=== PATIENT | female | born 1940 | race Caucasian/White ===

== ENCOUNTER 2016-09-13 10:46 | Inpatient (IN) | payer OTHER ==
[~2016-09-13] VITALS: Ht 167.6 cm; Wt 68.0 kg
[2016-09-13 10:46] VITALS: BP_SYST 188
[2016-09-13 11:34] LABS: BASOPHILS % (AUTO) 0.5 % (0.0-2.0); EOSINOPHILS # (AUTO) 0.1 K/uL (0.0-0.4); EOSINOPHILS % (AUTO) 1.1 % (0.0-4.0); HEMATOCRIT 41.5 % (36-48); LYMPHOCYTES # (AUTO) 1.3 K/uL (1.0-5.5); LYMPHOCYTES % (AUTO) 16.4 % (20.5-51.5); MEAN CORPUSCULAR HEMOGLOBIN 31 pg (27-31); MEAN CORPUSCULAR HGB CONC 34 % (32-36); MEAN CORPUSCULAR VOLUME 92 fL (79.0-98.0); MONOCYTES # (AUTO) 0.7 K/uL (0.0-1.0); MONOCYTES % (AUTO) 9.3 % (1.7-9.3); NEUTROPHILS # (AUTO) 5.8 K/uL (1.8-7.7); NEUTROPHILS % (AUTO) 72.7 % (40.0-70.0); PLATELET COUNT (AUTO) 234 K/uL (130-430); RED BLOOD CELL COUNT(AUTO) 4.51 MIL/uL (4.2-6.2); RED CELL DISTRIBUTION WIDTH 12.2 % (9.0-15.0); WHITE BLOOD COUNT (AUTO) 7.9 K/uL (4.8-10.8)
[2016-09-13 11:43] LABS: ANION GAP 3 (5-15); CHLORIDE 102 mmol/L (98-107); CREATININE 0.72 mg/dL (0.55-1.30); GLUCOSE 98 mg/dL (70-99); POTASSIUM 4.4 mmol/L (3.5-5.1); SODIUM SERUM 135 mmol/L (136-145); UREA NITROGEN, BLOOD 13 mg/dL (8-21)
[2016-09-13 11:47] LABS: INR 1.1 (0.8-1.2); PROTHROMBIN TIME 12.1 SECS (9.5-12.5)
[2016-09-13 11:48] LABS: ALANINE AMINOTRANSFERASE 19 U/L (12-78); ASPARTATE AMINOTRANSFERASE 19 U/L (10-37); TOTAL BILIRUBIN 0.7 mg/dL (0.0-1.0); TOTAL PROTEIN, SERUM 7.7 g/dL (6.4-8.3)
[2016-09-13 12:18] LABS: BILIRUBIN,URINE NEGATIVE (NEGATIVE); BLOOD, URINE 1+ (NEGATIVE); CLARITY/URINE CLEAR (CLEAR); COLOR,URINE YELLOW (YELLOW); GLUCOSE,URINE NEGATIVE (NEGATIVE); KETONES,URINE NEGATIVE (NEGATIVE); LEUKOCYTE ESTERASE ,URINE TRACE (NEGATIVE); NITRITE, URINE NEGATIVE (NEGATIVE); PH,URINE 5.5 (5.0-8.0); PROTEIN URINE NEGATIVE (NEGATIVE); UROBILINOGEN,URINE 0.2 (0.2-1.0)
[2016-09-13 12:29] LABS: BACTERIA,URINE FEW /HPF (None Seen)
[2016-09-13 12:30] LABS: MUCUS,URINE None Seen /LPF (None Seen)
[2016-09-13] MEDS ORDERED: ASPIRIN 325 MG TABLET (ECOTRIN) PO ONE (15:00)
[2016-09-13] MEDS ORDERED: ASPIRIN 325 MG TABLET ONE (15:20)
[2016-09-13 15:36] VITALS: BP_SYST 159
[2016-09-13] MEDS ORDERED: ASCO500T20 PO (16:02)
[2016-09-13] MEDS ORDERED: VITD2000 PO (16:02)
[2016-09-13] MEDS ORDERED: GLUC-194 PO (16:02)
[2016-09-13 19:30] VITALS: BP_SYST 141
[2016-09-14 00:49] VITALS: BP_SYST 180
[2016-09-14 04:00] VITALS: BP_SYST 168
[2016-09-14 06:48] LABS: BASOPHILS % (AUTO) 0.3 % (0.0-2.0); EOSINOPHILS % (AUTO) 0.5 % (0.0-4.0); HEMATOCRIT 40.8 % (36-48); HEMOGLOBIN 13.7 g/dL (12.0-16.0); LYMPHOCYTES # (AUTO) 0.8 K/uL (1.0-5.5); LYMPHOCYTES % (AUTO) 10.7 % (20.5-51.5); MEAN CORPUSCULAR HEMOGLOBIN 31 pg (27-31); MEAN CORPUSCULAR HGB CONC 34 % (32-36); MEAN CORPUSCULAR VOLUME 92 fL (79.0-98.0); MONOCYTES # (AUTO) 0.5 K/uL (0.0-1.0); MONOCYTES % (AUTO) 6.3 % (1.7-9.3); NEUTROPHILS % (AUTO) 82.2 % (40.0-70.0); PLATELET COUNT (AUTO) 218 K/uL (130-430); RED BLOOD CELL COUNT(AUTO) 4.44 MIL/uL (4.2-6.2); WHITE BLOOD COUNT (AUTO) 7.3 K/uL (4.8-10.8)
[2016-09-14 06:55] LABS: ALANINE AMINOTRANSFERASE 16 U/L (12-78); ALBUMIN 3.7 g/dL (3.4-4.8); ANION GAP 3 (5-15); ASPARTATE AMINOTRANSFERASE 18 U/L (10-37); CHLORIDE 101 mmol/L (98-107); CREATININE 0.72 mg/dL (0.55-1.30); GLUCOSE 99 mg/dL (70-99); POTASSIUM 4.4 mmol/L (3.5-5.1); SODIUM SERUM 136 mmol/L (136-145); TOTAL BILIRUBIN 0.8 mg/dL (0.0-1.0); TOTAL PROTEIN, SERUM 7.4 g/dL (6.4-8.3); UREA NITROGEN, BLOOD 11 mg/dL (8-21)
[2016-09-14] MEDS: CHOLECALCIFEROL (VITAMIN D3) 2,000 UNIT TABLET PO SCH (08:00)
[2016-09-14] MEDS: RIVAROXABAN 10 MG TABLET PO SCH (08:01)
[2016-09-14] MEDS: DILTIAZEM HCL 180 MG CAP.SR.24H PO SCH (08:01)
[2016-09-14] MEDS: ASPIRIN 325 MG TABLET (ECOTRIN) PO SCH (08:01)
[2016-09-14] MEDS: ASCORBIC ACID 500 MG TABLET PO SCH (08:01)
[2016-09-14 08:22] VITALS: BP_SYST 139
[2016-09-14] MEDS ORDERED: MSM PO SCH (09:00)
[2016-09-14] MEDS ORDERED: CHONDROITIN A PO SCH (09:00)
[2016-09-14] MEDS ORDERED: GLUCOSAMINE PO SCH (09:00)
[2016-09-14 11:47] VITALS: BP_SYST 138
[2016-09-14 16:38] VITALS: BP_SYST 138
[2016-09-14] MEDS ORDERED: MAG-AL HYDROX/SIMETH 30 ML UDC PO PRN (20:15)
[2016-09-14 20:20] VITALS: BP_SYST 134
[2016-09-15] VITALS: BP_SYST 145
[2016-09-15 03:24] VITALS: BP_SYST 129
[2016-09-15 07:56] VITALS: BP_SYST 145
[2016-09-15] MEDS ORDERED: LORazepam 2 MG/ML VIAL IM ONE (09:00)
[2016-09-15] MEDS ORDERED: LORazepam 2 MG/ML VIAL IVP ONE (09:00)
[2016-09-15] MEDS: ASCORBIC ACID 500 MG TABLET PO SCH (09:12)
[2016-09-15] MEDS: CHOLECALCIFEROL (VITAMIN D3) 2,000 UNIT TABLET PO SCH (09:13)
[2016-09-15] MEDS: RIVAROXABAN 10 MG TABLET PO SCH (09:13)
[2016-09-15] MEDS: ASPIRIN 325 MG TABLET (ECOTRIN) PO SCH (09:13)
[2016-09-15] MEDS: DILTIAZEM HCL 180 MG CAP.SR.24H PO SCH (09:14)
[2016-09-15 12:00] VITALS: BP_SYST 153
[2016-09-15 12:30] VITALS: BP_SYST 130
[2016-09-15] MEDS ORDERED: ASCO500T20 BC (13:56)
[2016-09-15 14:12] VITALS: BP_SYST 130
== END 2016-09-15 14:35 | disposition home or self-care (01) | DRG 69 ==
LOC: SED 10:46 → STU 14:41
PROVIDERS: ADMIT Internal Medicine; ATTEND Internal Medicine Hospice and Palliative Medicine
DX: G45.9 Transient cerebral ischemic attack, unspecified (principal); I48.0 Paroxysmal atrial fibrillation; Z96.651 Presence of right artificial knee joint; I10 Essential (primary) hypertension; Z88.5 Allergy status to narcotic agent; Z86.73 Personal history of transient ischemic attack (TIA), and cerebral infarction without residual deficits
CPT/HCPCS: 36415; 70450-TC; 70551; 71010; 80053; 81000-TC; 84484; 85025; 85610-TC; 85730-TC; 87086; 93005; 99285; A4409; J2060

== ENCOUNTER 2018-07-12 16:40 | Emergency (ER) | payer OTHER ==
[~2018-07-12] VITALS: Ht 167.6 cm; Wt 72.6 kg
[~2018-07-12 16:40] MED LIST: ASCO500T20 BC
[2018-07-12 16:54] VITALS: BP_SYST 178
[2018-07-12] MEDS ORDERED: ASPIRIN 81 MG TAB.CHEW PO ONE (17:00)
[2018-07-12 17:33] LABS: ANION GAP 6 (5-15); CALCIUM 9.5 mg/dL (8.4-11.0); CHLORIDE 95 mmol/L (98-107); CREATININE 0.81 mg/dL (0.55-1.30); GLUCOSE 118 mg/dL (70-99); POTASSIUM 3.8 mmol/L (3.5-5.1); SODIUM SERUM 129 mmol/L (136-145); UREA NITROGEN, BLOOD 14 mg/dL (8-21)
[2018-07-12 17:37] LABS: PROTHROMBIN TIME 10.4 SECS (9.5-12.5)
[2018-07-12 17:38] LABS: ALANINE AMINOTRANSFERASE 18 U/L (12-78); ALBUMIN 3.9 g/dL (3.4-4.8); ASPARTATE AMINOTRANSFERASE 16 U/L (10-37); TOTAL BILIRUBIN 0.5 mg/dL (0.0-1.0)
[2018-07-12 17:42] LABS: BASOPHILS % (AUTO) 0.3 % (0.0-2.0); EOSINOPHILS # (AUTO) 0.1 K/uL (0.0-0.4); HEMATOCRIT 41.5 % (36-48); HEMOGLOBIN 14.1 g/dL (12.0-16.0); LYMPHOCYTES # (AUTO) 1.5 K/uL (1.0-5.5); LYMPHOCYTES % (AUTO) 17.6 % (20.5-51.5); MEAN CORPUSCULAR HEMOGLOBIN 31 pg (27-31); MEAN CORPUSCULAR HGB CONC 34 % (32-36); MEAN CORPUSCULAR VOLUME 93 fL (79.0-98.0); MONOCYTES # (AUTO) 0.8 K/uL (0.0-1.0); MONOCYTES % (AUTO) 9.6 % (1.7-9.3); NEUTROPHILS % (AUTO) 71.5 % (40.0-70.0); PLATELET COUNT (AUTO) 250 K/uL (130-430); RED BLOOD CELL COUNT(AUTO) 4.48 MIL/uL (4.2-6.2); RED CELL DISTRIBUTION WIDTH 13.7 % (9.0-15.0); WHITE BLOOD COUNT (AUTO) 8.4 K/uL (4.8-10.8)
[2018-07-12] MEDS ORDERED: NACL 0.9% 1,000 ML IV ONE (18:00)
[2018-07-12] MEDS ORDERED: hydrALAZINE HCL 20 MG/ML VIAL IVP ONE (22:00)
[2018-07-12] MEDS ORDERED: LORazepam 2 MG/ML VIAL (FOR ER USE) IVP ONE (22:15)
[2018-07-12 22:46] VITALS: BP_SYST 156
== END 2018-07-12 22:46 | disposition home or self-care (01) ==
LOC: SED 16:40
DX: R00.2 Palpitations (principal); E87.1 Hypo-osmolality and hyponatremia; E87.8 Other disorders of electrolyte and fluid balance, not elsewhere classified; I48.91 Unspecified atrial fibrillation; I10 Essential (primary) hypertension; Z88.5 Allergy status to narcotic agent; Z88.4 Allergy status to anesthetic agent
CPT/HCPCS: 36415; 71045; 80053; 82550; 84295; 84484; 85025; 85610; 85730; 93005; 96374; 99284; J2060; J7030; J0360

== ENCOUNTER 2019-01-03 13:02 | Emergency (ER) | payer OTHER ==
[~2019-01-03] VITALS: Ht 167.6 cm; Wt 68.0 kg
[2019-01-03 13:10] VITALS: BP_SYST 133
[2019-01-03 15:38] LABS: BASOPHILS # (AUTO) 0.1 K/uL (0.0-0.2); BASOPHILS % (AUTO) 0.6 % (0.0-2.0); EOSINOPHILS # (AUTO) 0.2 K/uL (0.0-0.4); EOSINOPHILS % (AUTO) 1.7 % (0.0-4.0); HEMATOCRIT 39.3 % (36-48); HEMOGLOBIN 13.1 g/dL (12.0-16.0); LYMPHOCYTES % (AUTO) 21.8 % (20.5-51.5); MEAN CORPUSCULAR HEMOGLOBIN 31 pg (27-31); MEAN CORPUSCULAR HGB CONC 33 % (32-36); MEAN CORPUSCULAR VOLUME 94 fL (79.0-98.0); MONOCYTES # (AUTO) 1.1 K/uL (0.0-1.0); MONOCYTES % (AUTO) 11.9 % (1.7-9.3); NEUTROPHILS # (AUTO) 5.8 K/uL (1.8-7.7); PLATELET COUNT (AUTO) 239 K/uL (130-430); RED BLOOD CELL COUNT(AUTO) 4.21 MIL/uL (4.2-6.2); RED CELL DISTRIBUTION WIDTH 13.8 % (9.0-15.0); WHITE BLOOD COUNT (AUTO) 9.1 K/uL (4.8-10.8)
[2019-01-03 15:52] LABS: ANION GAP 3 (5-15); CALCIUM 9.2 mg/dL (8.4-11.0); CHLORIDE 94 mmol/L (98-107); CREATININE 0.64 mg/dL (0.55-1.30); GLUCOSE 96 mg/dL (70-99); POTASSIUM 4.4 mmol/L (3.5-5.1); SODIUM SERUM 126 mmol/L (136-145); UREA NITROGEN, BLOOD 9 mg/dL (8-21)
[2019-01-03 15:58] LABS: ALANINE AMINOTRANSFERASE 16 U/L (12-78); ALBUMIN 3.8 g/dL (3.4-4.8); ASPARTATE AMINOTRANSFERASE 18 U/L (10-37); TOTAL BILIRUBIN 0.5 mg/dL (0.0-1.0)
[2019-01-03 16:13] LABS: BILIRUBIN,URINE NEGATIVE (NEGATIVE); CLARITY/URINE CLEAR (CLEAR); COLOR,URINE YELLOW (YELLOW); GLUCOSE,URINE NEGATIVE (NEGATIVE); KETONES,URINE NEGATIVE (NEGATIVE); LEUKOCYTE ESTERASE ,URINE TRACE (NEGATIVE); NITRITE, URINE NEGATIVE (NEGATIVE); PROTEIN URINE NEGATIVE (NEGATIVE); UROBILINOGEN,URINE 0.2 (0.2-1.0)
[2019-01-03 16:24] LABS: BLOOD, URINE TRACE (NEGATIVE)
[2019-01-03 16:29] LABS: BACTERIA,URINE FEW /HPF (None Seen); MUCUS,URINE None Seen /LPF (None Seen); RBC,URINE 0-3 /HPF (0-3)
[2019-01-03 16:56] VITALS: BP_SYST 125
== END 2019-01-03 16:57 | disposition home or self-care (01) ==
LOC: SED 13:02
DX: E87.1 Hypo-osmolality and hyponatremia (principal); R55 Syncope and collapse; I10 Essential (primary) hypertension; Z88.5 Allergy status to narcotic agent
CPT/HCPCS: 36415; 71045; 80053; 81000-TC; 83880; 84484; 85025; 87086; 93005; 99284

== ENCOUNTER 2019-03-02 21:14 | Emergency (ER) | payer OTHER ==
[~2019-03-02] VITALS: Ht 157.5 cm; Wt 59.0 kg
[2019-03-02 21:18] VITALS: BP_SYST 175
--- NOTE | 2019-03-02 21:28 | NUR ---
Patient to ER bed 01 For evaluation. Side rails up. Report given to Markus DRAPER.
--- NOTE | 2019-03-02 21:30 | NUR ---
Pt brought in by ambulance. Pt states that she was prescribed cipro by her PCP. Tooke it for the first time today, and now feels like her lips are numb. pt states that she has a history of anxiety. Pt denies chest pain, nausea, vomiting, diarrhea, shortness of breath. Pt denies any other medical complaint at this time. Pt resting in ED bed comfortably, VSS.
--- NOTE | 2019-03-02 21:34 | NUR ---
ER at bedside examining patient.
[2019-03-02] MEDS ORDERED: cloNIDine HCL 0.1 MG TABLET PO ONE (21:45)
[2019-03-02 22:40] VITALS: BP_SYST 140
--- NOTE | 2019-03-02 22:40 | NUR ---
Patient given written and verbal discharge instructions and verbalizes understanding. ER MD discussed with patient the results and treatment provided. Patient in stable condition. ID arm band removed. NO IV Rx of Bactrim and Atarax given. Patient educated on pain management and to follow up with PMD. Pain Scale 0/10. Opportunity for questions provided and answered. Medication side effect fact sheet provided.
== END 2019-03-02 22:40 | disposition home or self-care (01) ==
LOC: SED 21:14
DX: F41.9 Anxiety disorder, unspecified (principal); I48.20 Chronic atrial fibrillation, unspecified; I10 Essential (primary) hypertension; Z90.49 Acquired absence of other specified parts of digestive tract; Z79.899 Other long term (current) drug therapy; Z88.4 Allergy status to anesthetic agent; Z88.6 Allergy status to analgesic agent; Z86.73 Personal history of transient ischemic attack (TIA), and cerebral infarction without residual deficits
CPT/HCPCS: 99283

== ENCOUNTER 2020-08-14 09:51 | Emergency (ER) | payer OTHER ==
[~2020-08-14] VITALS: Ht 167.6 cm; Wt 70.3 kg
[2020-08-14 11:08] LABS: BASOPHILS % (AUTO) 0.5 % (0.0-2.0); EOSINOPHILS # (AUTO) 0.1 K/uL (0.0-0.4); EOSINOPHILS % (AUTO) 1.6 % (0.0-4.0); HEMOGLOBIN 13.4 g/dL (12.0-16.0); MONOCYTES # (AUTO) 0.9 K/uL (0.0-1.0)
[2020-08-14 11:16] LABS: HEMATOCRIT 39.4 % (36-48); LYMPHOCYTES # (AUTO) 1.5 K/uL (1.0-5.5); LYMPHOCYTES % (AUTO) 18.8 % (20.5-51.5); MEAN CORPUSCULAR HEMOGLOBIN 31 pg (27-31); MEAN CORPUSCULAR HGB CONC 34 % (32-36); MEAN CORPUSCULAR VOLUME 91 fL (79.0-98.0); MONOCYTES % (AUTO) 12.1 % (1.7-9.3); NEUTROPHILS # (AUTO) 5.2 K/uL (1.8-7.7); PLATELET COUNT (AUTO) 236 K/uL (130-430); RED BLOOD CELL COUNT(AUTO) 4.31 MIL/uL (4.2-6.2); RED CELL DISTRIBUTION WIDTH 13.6 % (9.0-15.0); WHITE BLOOD COUNT (AUTO) 7.8 K/uL (4.8-10.8)
[2020-08-14 11:42] LABS: ANION GAP 7 (5-15); CALCIUM 8.9 mg/dL (8.4-11.0); CHLORIDE 101 mmol/L (98-107); GLUCOSE 93 mg/dL (70-99); POTASSIUM 4.9 mmol/L (3.5-5.1); SODIUM SERUM 138 mmol/L (136-145)
[2020-08-14 11:43] LABS: UREA NITROGEN, BLOOD 17 mg/dL (8-21)
[2020-08-14 11:50] LABS: C-REACTIVE PROTEIN QUANT < 0.2 mg/dL (0-0.5)
[2020-08-14 11:51] LABS: ALANINE AMINOTRANSFERASE 20 U/L (12-78); ALBUMIN 3.7 g/dL (3.4-4.8); ASPARTATE AMINOTRANSFERASE 20 U/L (10-37); TOTAL BILIRUBIN 0.4 mg/dL (0.0-1.0)
[2020-08-14 12:29] VITALS: BP_SYST 138
== END 2020-08-14 12:29 | disposition home or self-care (01) ==
LOC: SED 09:51
DX: I80.01 Phlebitis and thrombophlebitis of superficial vessels of right lower extremity (principal); I10 Essential (primary) hypertension; I48.91 Unspecified atrial fibrillation; Z88.5 Allergy status to narcotic agent; Z79.899 Other long term (current) drug therapy
CPT/HCPCS: 36415; 80053; 83605; 85025; 86140; 99283

== ENCOUNTER 2020-10-15 09:39 | Emergency (ER) | payer OTHER ==
[~2020-10-15] VITALS: Ht 165.1 cm; Wt 70.3 kg
[2020-10-15 10:06] VITALS: BP_SYST 133
--- NOTE | 2020-10-15 10:11 | NUR ---
Patient to ER bed 4 to gown for evaluation. Side rails up. Report given to Tamie DRAPER.
--- NOTE | 2020-10-15 10:19 | NUR ---
Pt. bib friend to be evaluated per reccomendation of her PCP, states at 0100 had 10/10 pain to RLQ that lasted less than 1 minute and no pain since. Denies any N/V/D. Abdomen soft no pain on palpation.
--- NOTE | 2020-10-15 10:26 | NUR ---
DARCI Kohler at bedside examining patient.
--- NOTE | 2020-10-15 10:42 | NUR ---
Patient transported to radiology via wheelchair, accompanied by staff.
[2020-10-15 11:00] LABS: BASOPHILS % (AUTO) 0.5 % (0.0-2.0); EOSINOPHILS # (AUTO) 0.1 K/uL (0.0-0.4); EOSINOPHILS % (AUTO) 1.2 % (0.0-4.0); HEMATOCRIT 39.2 % (36-48); HEMOGLOBIN 13.5 g/dL (12.0-16.0); LYMPHOCYTES # (AUTO) 1.5 K/uL (1.0-5.5); LYMPHOCYTES % (AUTO) 20.2 % (20.5-51.5); MEAN CORPUSCULAR HEMOGLOBIN 32 pg (27-31); MEAN CORPUSCULAR HGB CONC 34 % (32-36); MEAN CORPUSCULAR VOLUME 93 fL (79.0-98.0); MONOCYTES # (AUTO) 0.8 K/uL (0.0-1.0); MONOCYTES % (AUTO) 11.1 % (1.7-9.3); NEUTROPHILS # (AUTO) 4.9 K/uL (1.8-7.7); PLATELET COUNT (AUTO) 226 K/uL (130-430); RED BLOOD CELL COUNT(AUTO) 4.23 MIL/uL (4.2-6.2); RED CELL DISTRIBUTION WIDTH 13.6 % (9.0-15.0); WHITE BLOOD COUNT (AUTO) 7.3 K/uL (4.8-10.8)
[2020-10-15 11:09] LABS: ANION GAP 7 (5-15); CALCIUM 9.1 mg/dL (8.4-11.0); CHLORIDE 103 mmol/L (98-107); CREATININE 0.82 mg/dL (0.55-1.30); GLUCOSE 106 mg/dL (70-99); POTASSIUM 4.8 mmol/L (3.5-5.1); SODIUM SERUM 141 mmol/L (136-145); UREA NITROGEN, BLOOD 17 mg/dL (8-21)
[2020-10-15 11:15] LABS: ALANINE AMINOTRANSFERASE 23 U/L (12-78); ALBUMIN 3.8 g/dL (3.4-4.8); ASPARTATE AMINOTRANSFERASE 17 U/L (10-37); TOTAL BILIRUBIN 0.5 mg/dL (0.0-1.0)
--- NOTE | 2020-10-15 12:00 | NUR ---
PT RESTING QUIETLY IN NO DISTRESS AWAITING DISPOSITION.
[2020-10-15 13:04] LABS: BILIRUBIN,URINE NEGATIVE (NEGATIVE); BLOOD, URINE 1+ (NEGATIVE); COLOR,URINE YELLOW (YELLOW); GLUCOSE,URINE NEGATIVE (NEGATIVE); KETONES,URINE NEGATIVE (NEGATIVE); LEUKOCYTE ESTERASE ,URINE 1+ (NEGATIVE); NITRITE, URINE NEGATIVE (NEGATIVE); PROTEIN URINE NEGATIVE (NEGATIVE); UROBILINOGEN,URINE 0.2 (0.2-1.0)
[2020-10-15 13:06] LABS: CLARITY/URINE SLIGHTLY HAZY (CLEAR)
[2020-10-15 13:19] LABS: BACTERIA,URINE MODERATE /HPF (None Seen); MUCUS,URINE 1+ /LPF (None Seen)
[2020-10-15] MEDS ORDERED: cefTRIAXone 1 GM in D5W 50 ML IV ONE (14:00)
[2020-10-15] MEDS ORDERED: NACL 0.9% 1,000 ML IV ONE (14:00)
--- NOTE | 2020-10-15 14:00 | NUR ---
PT PROVIDED LUNCH TRAY PER DR. LINDSAY.
--- NOTE | 2020-10-15 14:15 | NUR ---
Patient transported to radiology via wheelchair, accompanied by staff.
[2020-10-15] MEDS ORDERED: cefTRIAXone 1 GM VIAL ONE (14:45)
--- NOTE | 2020-10-15 15:10 | NUR ---
# 20 gauge angiocath placed to right AC. Use of asceptic technique. Opsite placed over site. Blood return noted. Blood for lab drawn from site. Flushed with 10 cc of normal saline. No evidence of infiltration noted. Patient tolerated well.
[2020-10-15] MEDS ORDERED: CEFU250T85 PO (15:17)
[2020-10-15 16:04] VITALS: BP_SYST 152
--- NOTE | 2020-10-15 16:06 | NUR ---
Patient given written and verbal discharge instructions and verbalizes understanding. Dr. Ruth discussed with patient the results and treatment provided. Patient in stable condition. ID arm band removed. IV catheter removed intact and dressing applied, no active bleeding. Rx of Ceftin given. Patient educated on pain management and to follow up with PMD. Pain Scale 0.Opportunity for questions provided and answered. Medication side effect fact sheet provided.
== END 2020-10-15 16:04 | disposition home or self-care (01) ==
LOC: SED 09:39
DX: N39.0 Urinary tract infection, site not specified (principal); I10 Essential (primary) hypertension; I48.91 Unspecified atrial fibrillation; Z88.5 Allergy status to narcotic agent; Z79.899 Other long term (current) drug therapy
CPT/HCPCS: 36415; 74018; 74176; 76376; 80053; 81000; 83605; 85025; 87040; 87086; 96365; 99285; J0696; J7030

== ENCOUNTER 2020-10-22 21:13 | Emergency (ER) | payer OTHER ==
[~2020-10-22] VITALS: Ht 165.1 cm; Wt 68.0 kg
[~2020-10-22 21:13] MED LIST changes: +CEFU250T85 PO
[2020-10-22 21:20] VITALS: BP_SYST 142
--- NOTE | 2020-10-22 21:50 | NUR ---
Placed in room 2 . Placed on cardiac technologist, blood pressure machine and pulse oximeter. To gown for exam. Side rails up. Report given to VIRAJ DRAPER.
--- NOTE | 2020-10-22 22:05 | NUR ---
Patient BIB by BLS/EMS from home. C/O near syncope x today. Per reported, patient had near syncope, and hot flash. A/O,X4, denies pain, vss.
--- NOTE | 2020-10-22 22:10 | NUR ---
Blood for labwork drawn from upkeep mechanic. Patient tolerated well.
[2020-10-22 22:21] LABS: BASOPHILS % (AUTO) 0.4 % (0.0-2.0); EOSINOPHILS # (AUTO) 0.3 K/uL (0.0-0.4); EOSINOPHILS % (AUTO) 2.6 % (0.0-4.0); HEMATOCRIT 37.9 % (36-48); HEMOGLOBIN 12.8 g/dL (12.0-16.0); LYMPHOCYTES # (AUTO) 1.8 K/uL (1.0-5.5); LYMPHOCYTES % (AUTO) 18.6 % (20.5-51.5); MEAN CORPUSCULAR HEMOGLOBIN 31 pg (27-31); MEAN CORPUSCULAR HGB CONC 34 % (32-36); MEAN CORPUSCULAR VOLUME 93 fL (79.0-98.0); MONOCYTES # (AUTO) 0.9 K/uL (0.0-1.0); MONOCYTES % (AUTO) 9.5 % (1.7-9.3); NEUTROPHILS # (AUTO) 6.7 K/uL (1.8-7.7); NEUTROPHILS % (AUTO) 68.9 % (40.0-70.0); PLATELET COUNT (AUTO) 216 K/uL (130-430); RED BLOOD CELL COUNT(AUTO) 4.09 MIL/uL (4.2-6.2); RED CELL DISTRIBUTION WIDTH 13.7 % (9.0-15.0); WHITE BLOOD COUNT (AUTO) 9.8 K/uL (4.8-10.8)
[2020-10-22 22:35] LABS: INR 1.5 (0.8-1.2); PROTHROMBIN TIME 15.2 SECS (9.5-12.5)
[2020-10-22 22:49] LABS: ANION GAP 7 (5-15); CHLORIDE 100 mmol/L (98-107); GLUCOSE 169 mg/dL (70-99); POTASSIUM 4.1 mmol/L (3.5-5.1); SODIUM SERUM 135 mmol/L (136-145)
[2020-10-22 22:50] LABS: ASPARTATE AMINOTRANSFERASE 17 U/L (10-37); CALCIUM 8.9 mg/dL (8.4-11.0); TOTAL BILIRUBIN 0.2 mg/dL (0.0-1.0); UREA NITROGEN, BLOOD 17 mg/dL (8-21)
[2020-10-22 22:52] LABS: ALBUMIN 3.3 g/dL (3.4-4.8)
[2020-10-22 23:10] LABS: ALANINE AMINOTRANSFERASE 24 U/L (12-78)
--- NOTE | 2020-10-22 23:15 | NUR ---
EKG at bedside.
--- NOTE | 2020-10-22 23:47 | NUR ---
Patient called family for a ride.
[2020-10-22 23:52] VITALS: BP_SYST 142
--- NOTE | 2020-10-22 23:52 | NUR ---
Patient given written and verbal discharge instructions and verbalizes understanding. ER MD discussed with patient the results and treatment provided. Patient in stable condition. ID arm band removed. No Rx given. Patient educated on pain management and to follow up with PMD. Pain Scale 0/10. Opportunity for questions provided and answered. Medication side effect fact sheet provided.
== END 2020-10-22 23:52 | disposition home or self-care (01) ==
LOC: SED 21:13
DX: R55 Syncope and collapse (principal); I10 Essential (primary) hypertension; I48.91 Unspecified atrial fibrillation; Z88.8 Allergy status to other drugs, medicaments and biological substances; Z88.5 Allergy status to narcotic agent; Z79.899 Other long term (current) drug therapy
CPT/HCPCS: 36415; 71045; 80053; 83605; 84484; 85025; 85610-TC; 85730-TC; 93005; 99285